=== PATIENT | female | born 1985 | race Caucasian/White ===

== ENCOUNTER 2016-05-11 22:55 | Observation (INO) | payer MEDICAID ==
[~2016-05-11] VITALS: Ht 175.3 cm; Wt 105.0 kg
--- NOTE | ~2016-05-11 | ER ---
PATIENT'S NAME: SENTHIL WEST [facility] AGE: 30 Y [address] ROOM: [place] [id number] LOCATION: [facility] ADMIT DATE: 05/11/2016 ER/Outpatient Report DISCHARGE DATE: FAMILY PHYSICIAN: Physician, Unknown ATTENDING PHYSICIAN: Andi Tuttle Time of Arrival: 2253 hours. Time of Evaluation: 2253 hours. CHIEF COMPLAINT: Seizures. HISTORY OF PRESENT ILLNESS: The patient arrived per EMS. She is currently staying at the [facility]; is here from [place]. Has a history of seizure disorder. Upon EMS arrival, she did have a seizure. They started an IV, gave her Ativan 2 mg and Zofran. She did seize again and they gave her Valium 5 mg IV. Upon arrival to the ER, she states that she did fall tonight prior to all the seizures starting, hit her head, and has some generalized neck pain. She is alert and able to answer questions appropriately. ALLERGIES: SHE HAS MULTIPLE ALLERGIES LISTED ON THE CHART. MEDICATIONS: See her med list. PAST MEDICAL HISTORY: Seizure, anemia, and ovarian cyst. PAST SURGERIES: Include brain surgery, throat surgery, left leg surgery, cholecystectomy, and lymph nodes. SOCIAL HISTORY: She does smoke 1/2 pack per day and has for the last 10 years. Is currently staying at the [facility]. Denies use of drugs and alcohol. States she is taking Keppra on a regular basis. REVIEW OF SYSTEMS: She denies being ill prior to all this starting. Has not had a cough, cold, congestion, or runny nose. Has not had any chest pain. Has not been sick to her stomach. Has not been vomiting or having diarrhea. PHYSICAL EXAMINATION: VITAL SIGNS: She weighed 107.2 kg. Blood pressure is 113/62, pulse of 77, PATIENT'S NAME: SENTHIL WEST [facility] AGE: 30 Y [address] ROOM: [place] [address] LOCATION: [facility] ADMIT DATE: 05/11/2016 ER/Outpatient Report DISCHARGE DATE: FAMILY PHYSICIAN: Physician, Unknown ATTENDING PHYSICIAN: Andi Tuttle respirations 18, temperature of 98.2, and O2 saturations are 96% on room air. GENERAL: She is awake and alert and oriented x4. HEENT: Pupils are equal and reactive to light. Extraocular movement is intact. Follows directions appropriately. LUNGS: Lung sounds are clear throughout. HEART: Regular rate and rhythm. ABDOMEN: Soft, nondistended. Bowel sounds are present. EXTREMITIES: She has good sensation to all of her extremities, able to move her legs without increased pain or discomfort. EMERGENCY DEPARTMENT COURSE: The patient was taken to CAT scan for CT of the head and neck. While in CAT scan, she did have a seizure. She was given Valium 5 mg IV. Upon return to the ER, lab work was drawn. Her CBC is within normal limits. Chem panel is within normal limits. Prolactin was 40. CT of the C-spine shows no cervical abnormalities. She does have a right thyroid nodule. CT of the head was normal. The patient did have another seizure here in the ER and was given Ativan 4 mg IV. She remains awake and talking after the seizure, answers questions, denies having any pain. The patient was reviewed with Dr. Tuttle. Keppra 500 mg IV was ordered and initiated. Report was given to Dr. Tuttle who will resume the patient's care. ARDEN PATTERSON APRN FOR MD ADILENE RIDDLE/darryn /[id number] d: 05/12/16 0446 t: 05/15/16 1825, OUTPATIENT REPORT
--- NOTE | ~2016-05-11 | ER ---
PATIENT'S NAME: SENTHIL WE[facility] AGE: 30 Y [address] ROOM: [address] [place], [place] [address] LOCATION: GPCU ADMIT DATE: 05/12/2016 ER/Outpatient Report DISCHARGE DATE: FAMILY PHYSICIAN: PHYSICIAN, UNKNOWN ATTENDING PHYSICIAN: Ravinder Barry HISTORY OF PRESENT ILLNESS: This patient is a 30-year-old female, brought to the emergency room by paramedics by ambulance with acute seizure activity. She has a known seizure disorder. Saw Cadence France, who did the workup. She got a total of 4 mg of Ativan and 5 mg of Valium en route, still was having some seizure activity here. We subsequently gave her additional 4 mg of Ativan and 5 mg of Valium while she was here in the emergency department along with 500 mg of Keppra IV. She did have a CT scan of the head and cervical spine, which were both normal except for a thyroid nodule. Cadence France did transfer the patient's care over to me at shift change. She asked me to follow up with her laboratory studies, final diagnosis, and treatment plan. See Cadence France's dictation in regard to the history of the present illness, physical exam, past medical history. LABORATORY DATA AND X-RAYS: The patient's white count was 6600, 54 segs, 35 lymphs, 8 monos, 2 eos, 1 baso. Hemoglobin is 11.7, hematocrit 36.2, platelet count is 215,000. CMS was normal except for an elevated glucose 101, low calcium 7.9. Prolactin level was elevated at 40. CT scan of the cervical spine showed no fracture or subluxation. She had a 1.3 cm right thyroid nodule. IMAGING: CT scan of the head showed no intracranial bleed, midline shift, mass effect, or skull fracture. CT scans were read by Radiology, see dictated transcribed report. Again, the patient was fairly postictal and was sedated with Ativan and Valium and also given Keppra 500 mg IV. IMPRESSION: Acute seizure activity with known seizure disorder. PLAN: I did discuss the patient with Dr. Barry, hospitalist, who will admit the patient for observation. Keppra and blood study level was drawn and sent out. We will keep her on Keppra 500 mg b.i.d. Further treatment and evaluation as needed. PATIENT'S NAME: SENTHIL WEST [facility] AGE: 30 Y [address] ROOM: [place] [address] [facility] ADMIT DATE: 05/12/2016 ER/Outpatient Report DISCHARGE DATE: FAMILY PHYSICIAN: PHYSICIAN, UNKNOWN ATTENDING PHYSICIAN: Ravinder Barry MD SDS/modl /[id number] d: 05/12/16710 t: 05/14/16 1814, OUTPATIENT REPORT
--- NOTE | ~2016-05-11 | NDGEN ---
PATIENT'S NAME: SENTHIL WEST [facility] AGE: 30 Y [address] ROOM: [facility] [place], [place] [address] [facility] ADMIT DATE: 05/12/2016 Neurodiagnostics DISCHARGE DATE: FAMILY PHYSICIAN: PHYSICIAN, UNKNOWN ATTENDING PHYSICIAN: Ravinder Barry PROCEDURE: ELECTROENCEPHALOGRAM DATE OF PROCEDURE: 05/12/2016 CLINICAL DIAGNOSIS: TIME: 10:07 a.m. INDICATION: Here is for this 30-year-old female patient who has a recent history of possible generalized seizures versus pseudoseizures. This is a standard 20-lead EEG which was done with the patient awake though she was drowsy and was mumbling in a sleepy state. During the 20-minute study, the patient did fall asleep. There was a photic stimulation, but hyperventilation was not done due to the patient's drowsiness. DESCRIPTION: The general background rhythm showed a mixture of alpha and beta rhythm and was symmetric in all the leads. The alpha rhythm appeared to have a normal sinusoidal pattern. occasionally, the background rhythm was also intermixed with beta range rhythm of at least 15 to 18 hertz. This beta rhythm would most likely be consistent with the patient being in a drowsy state due to recent benzodiazepine use. No time was there any epileptiform features seen and no seizures were recorded. IMPRESSION: Essentially a normal electroencephalogram with no epileptiform features. The lower amplitude beta rhythm is likely associated with the patient receiving benzodiazepines. MD ANI POP/darryn /[id number] dtt: 06/02/16 1315 , ISAIAH KEN dtd: 05/12/16 1824
--- NOTE | ~2016-05-11 | ECHO ---
Transthoracic Echocardiography Report (TTE) Demographics Patient Name SENTHIL WEST Date of Study 05/12/2016 Patient Number [id number] Visit Number [id number] Date of 1985 Room Number G6334 Accession Number [id number] Gender Female Age 30 year(s) Referring Asha Blood MD Chip Bin Operator Anup Caputo Physician Physician Dereje Robison Clinic Administrator Physician Clara Supervising Ordering Physician Asha Blood MD, MD/P Nurse Stress Marble Worker Conclusions Contractility Score Summary Normal Left Ventricular contractility was noted. Summary The estimated left ventricular ejection fraction is 55-60%. Diastolic assessment suggests normal relaxation. The left atrium is mildly dilated by LA volume index measurement. The right atrium is mildly dilated. Suboptimal subcostal window due to patient position. Unable to evaluate the interatrial septum. Procedure Type of Study TTE procedure:2D Echocardiogram, M-Mode, Doppler , Color Doppler. Procedure Date Date: 05/12/2016 Start: 07:49 AM Study Location: Inpatient Portable Technical Quality: Good visualization Indications:Bradycardia. Appropriate Use Criteria: 9 Patient Status: Routine HR: 53 bpm BP: 126/84 mmHg M-Mode/2D Measurements LV Diastolic Dimension: 4.93 cm LV Systolic Dimension: 3.53 cm LV Septum Diastolic: 0.92 cm LV PW Diastolic: 0.95 cm AO Root Dimension: 2.3 cm Cardiac Output: 5.55 l/min LA Dimension: 3.9 cm EF Estimated: 60 % LVOT: 2.3 cm LVOT VTI: 25.2 cm RV Base: 2.88 cm LV Stroke volume: 104.65 ml RV Length: 6.48 cm TAPSE: 2.52 cm TDI-S': 12.1 cm/s Doppler Measurements AV Peak Velocity: 1.14 m/s MV Peak E-Wave: 0.78 m/s AV Peak Gradient: 5.2 mmHg MV Peak A-Wave: 0.7 m/s AV Mean Gradient: 4 mmHg MV E/A Ratio: 1.11 LVOT Peak Velocity: 0.99 m/s MV P1/2t: 53 msec TR Gradient:24.4 mmHg PV Peak Velocity: 0.72 m/s Estimated RAP:8 mmHg PV Peak Gradient: 2.09 mmHg Estimated RVSP: 32 mmHg Estimated PASP: 32.4 mmHg E' Septal Velocity: 0.08 m/s A' Septal Velocity: 0.12 m/s E' Lateral Velocity: 0.12 m/s A' Lateral Velocity: 0.08 m/s Findings Left Ventricle The left ventricle is normal in size . Diastolic assessment suggests normal relaxation. Right Ventricle Normal right ventricle structure and function. Left Atrium The left atrium is mildly dilated by LA volume index measurement. Right Atrium The right atrium is mildly dilated. Mitral Valve Trivial mitral regurgitation by color Doppler. Aortic Valve Normal aortic valve structure and function. Tricuspid Valve Trivial tricuspid regurgitation by color Doppler. Pulmonic Valve Trivial pulmonic valve regurgitation by color Doppler. Pericardial Effusion No evidence of pericardial effusion. Miscellaneous Visualized portions of the aortic root and ascending aorta appear normal in size. Suboptimal subcostal window due to patient position. Unable to evaluate the interatrial septum. Pleural Effusion No evidence of pleural effusion. Contractility Score LV regional wall motion:(0-Non visualized 1-Normal 2-Hypokinesis 3-Akinesis 4-Dyskinesis 5-Aneurysm) Signature dtt: CLARA ROBISON dtd: 05/12/16 0749 Physician Self Edit
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
--- NOTE | ~2016-05-11 | HP ---
PATIENT'S NAME: SENTHIL WEST [facility] AGE: 30 Y [address] ROOM: [place] [address] LOCATION: GPCU ADMIT DATE: 05/12/2016 History & Physical DISCHARGE DATE: FAMILY PHYSICIAN: PHYSICIAN, UNKNOWN ATTENDING PHYSICIAN: Ravinder Barry DATE OF SERVICE: CHIEF COMPLAINT: Intractable seizures. HISTORY OF PRESENTING ILLNESS: This 30-year-old, white female was brought to the emergency department last evening with recurrent seizures. She is known to have seizure disorder and does take anti-seizure medication. Per her own report and to the emergency room physician, she had been compliant with her medication. She had several witnessed seizures in the emergency room and received IV Keppra. Subsequently, she continued to have seizures and received some additional Valium, Ativan, and IV valproate. After her arrival to the floor, she did have some additional episodes of bradycardia, although her blood pressures have remained stable. She also had another seizure after her arrival to the floor. Seizures have been characterized by tonic-clonic activity and diminished responsiveness. On my evaluation, she was awake and complaining of mild headache. She was lethargic. She indicated that she had been compliant with her medications. She has not been sleeping well as of late. She was unable to recount any other additional historical information. ALLERGIES: CECLOR, SULFAZINE, DOXYCYCLINE, LAMICTAL, MORPHINE, AND ZITHROMAX. ILLNESSES: 1. Seizure disorder. 2. Anemia. 3. Obesity. CURRENT MEDICATIONS: Unknown and unavailable, but apparently including Keppra. FAMILY HISTORY: Unobtainable secondary to the patient's depressed mental status. SOCIAL HISTORY: PATIENT'S NAME: SENTHIL WEST [facility] AGE: 30 Y [address] ROOM: [address] [address] LOCATION: GPCU ADMIT DATE: 05/12/2016 History & Physical DISCHARGE DATE: FAMILY PHYSICIAN: PHYSICIAN, UNKNOWN ATTENDING PHYSICIAN: Ravinder Barry Unobtainable secondary to the patient's diminished mental status. REVIEW OF SYSTEMS: As per HPI. The remainder are reviewed in very limited fashion secondary to the patient's nearly obtunded mental status, but otherwise negative. OBJECTIVE: VITAL SIGNS: Temperature 98.2, pulse 72, respirations 18, blood pressure 113/62, O2 saturation 96% on room air, weight is 107.2 kilos. GENERAL: She is little disheveled, awake, but lethargic and able to answer questions only in nodding fashion. She is not oriented. SKIN: Supple, pink, warm, dry. There were no obvious rashes. She does have some tattoos evident and some scattered piercings. HEENT: Otherwise, normocephalic. Sclerae are nonicteric. There is some horizontal nystagmus noted. Pupils are equal, round, briskly responsive to light. Extraocular movements appear intact. Nasal turbinates are normal in appearance. Oropharynx is clear. Mucous membranes are pink and moist. NECK: Supple, plethoric, and obese. No masses or adenopathy. No thyromegaly. No JVD. CHEST: Chest wall is symmetrical. HEART: Regular without murmurs. LUNGS: Diminished at the bases. No crackles. No wheezes. ABDOMEN: Soft, nontender. Bowel sounds are present. No masses or hepatosplenomegaly. and RECTAL: Not done. EXTREMITIES: Display no significant clubbing, cyanosis, or edema. NEUROLOGICAL: Nystagmus as described above. Cranial nerves 2 through 12 appear to be grossly intact. Sensation appears normal. Strength is diminished, 3 to 5/5 bilaterally in upper and lower extremities. DTRs 0 to 1+. Gait is not observed. LABORATORY AND X-RAY DATA: CT scan of the head is negative for any acute intracranial process. CT scan of the C-spine is unremarkable. A 1.3 cm right thyroid nodule is incidentally noted. ASSESSMENT AND PLAN: 1. Seizures, intractable. Plan to continue with IV Keppra and valproate. We will utilize p.r.n. benzodiazepine therapy for breakthrough seizures. We will plan to get teleneurology consultation later this morning and provide continued supportive cares. 2. Bradycardia, asymptomatic. Symptoms seem to be intermittent and probably vagally mediated related to the seizures. We will monitor on telemetry and provide supportive cares as above. We will plan to get echocardiography later this morning. PATIENT'S NAME: SENTHIL WEST [facility] AGE: 30 Y [address] ROOM: [id number] [place] [address] LOCATION: GPCU ADMIT DATE: 05/12/2016 History & Physical DISCHARGE DATE: FAMILY PHYSICIAN: PHYSICIAN, UNKNOWN ATTENDING PHYSICIAN: Ravinder Barry 3. Thyroid nodule. It is unknown if this is already known to the patient. We will get TSH and free T4 and follow up now when the results are known. 4. Morbid obesity due to excess calories. In the long-term, we will work on some long-term strategies for weight loss including calorie reduction, increased exercise, etc. 5. Deep venous thrombosis prophylaxis. We will hold off on heparin and Lovenox in light of the active seizure problem. Utilize pneumatic compression devices while she is in bed. MD BONNIE NUÑEZ/modl /[id number] D: [id number] T: [id number] HISTORY & PHYSICAL
[2016-05-11 23:38] LABS: BASOPHIL % 0.6 %; EOSINOPHIL # 0.2 K/uL (0.0-0.5); EOSINOPHIL % 2.4 %; HEMATOCRIT 36.2 % (33.0-46.0); HEMOGLOBIN 11.7 g/dL (11.0-15.0); IMMATURE GRANULOCYTE % 0.2 %; LYMPHOCYTE # 2.3 K/uL (0.8-4.0); MCH 30.2 pg (27.0-34.0); MCHC 32.3 gm/dL (32.0-36.5); MCV 93.3 fl (83.0-98.0); MONOCYTE # 0.5 K/uL (0.0-1.0); MONOCYTE % 7.9 %; NEUTROPHIL # (ANC) 3.6 K/uL (1.8-7.8); NEUTROPHIL % 53.9 %; NRBC % 0 /100WBC (0-0.00); PLATELET COUNT 215 K/uL (150-450); RBC 3.88 M/uL (3.50-5.50); RDW-CV 13.5 % (11.9-14.6); WBC 6.6 K/uL (4.0-11.0)
[2016-05-11 23:59] LABS: ALK PHOS 96 IU/L (33-138); ALT 25 IU/L (12-78); ANION GAP 11.8 (10.0-19.0); AST 18 IU/L (10-40); BLOOD UREA NITROGEN 14 mg/dL (6-24); CALCIUM 7.9 mg/dL (8.5-10.5); CHLORIDE 107 mMol/L (96-110); CO2 27 mMol/L (22-32); ESTIMATED GFR (MDRD EQUATION) > 60; POTASSIUM 3.8 mMol/L (3.7-5.1); SODIUM 142 mMol/L (135-145); TOTAL BILIRUBIN 0.1 mg/dL (0.0-1.5); TOTAL PROTEIN 6.4 g/dL (6.0-8.4)
[2016-05-12] MEDS ORDERED: BACTRIM DS TAB1 EACH PO (09:52)
[2016-05-12] MEDS ORDERED: DAILY VITAMIN1 EAC2 PO (09:53)
[2016-05-12] MEDS ORDERED: KEPPRA500 MG PO (09:53)
[2016-05-12] MEDS ORDERED: HYDROXYZINE PAM25 MG PO (09:54)
[2016-05-12] MEDS ORDERED: NEURONTIN300 MG PO (09:55)
[2016-05-12] MEDS ORDERED: COLESTID1 GM PO (09:55)
[2016-05-12] MEDS ORDERED: PROZAC20 MG PO (09:56)
[2016-05-12] MEDS ORDERED: PRILOSEC20 MG PO (09:56)
[2016-05-12] MEDS ORDERED: DESYREL150 MG PO (09:57)
[2016-05-12] MEDS ORDERED: MINIPRESS2 MG PO (09:57)
[2016-05-12 13:05] LABS: BILIRUBIN URINE NEGATIVE (NEGATIVE); BLOOD URINE NEGATIVE /UL (NEGATIVE); COLOR URINE STRAW (YELLOW); GLUCOSE URINE NEGATIVE (NEGATIVE); KETONE URINE NEGATIVE (NEGATIVE); LEUKOCYTES URINE NEGATIVE /UL (NEGATIVE); NITRITE URINE NEGATIVE (NEGATIVE); PROTEIN URINE NEGATIVE (NEGATIVE); TURBIDITY URINE CLEAR (CLEAR); UROBILINOGEN URINE NORMAL (NORMAL)
--- NOTE | 2016-05-12 14:22 | NUR ---
Introduced self and CM role to Ragini Medina ([facility] Advocate) and Leila ([facility]). SW materials intern Aleyda also present. I let them know that I helped out with eventual dismissal plans. Carol tells me that she lives at the [facility] and has asked to be a confidential patient. I let her know I wuold relay this with nursing if they didn't already know. Ragini states that she, or any other [facility] Advocate, will be able to come and pick her up when she is dismissed. The number to the [facility] is [phone]. Both Ragini and Leila asked if they could have a release of information signed so they would be able to get updates on Carol in order to help her. I let them know that was up to Carol. Carol states that this is fine. I did get the release of healthcare information form and had both Leila and Ragini fill one out and have Carol sign them. I placed them in Carol's chart for future reference. Carol denied any questions, needs or concerns. I let them know I would continue to follow and assist. I also gave both of them my business card for future contact or questions they might have. Will continue to follow and assist. Updated EDUARDO Pastor that she wanted to be a confidential patient, she was already aware of this and has updated admissions. Updated Dr. Jasso to it as well. Will continue to follow and assist.
--- NOTE | 2016-05-12 18:06 | NUR ---
patient is 30 yo female admitted from ER at 0557 this am. patient has been having seizures throughout the day. was asked to complete the admission data base I. introduced myself to patient, told her that I needed to ask her some questions to complete our paperwork. Did say she was her from [place] to "try to be safe." refused to give contact information. stated "they already have that." asked her about her surgery history. patient stated "oh my God, they already have that" and rolled over away from me. refused to answer any further questions at this time. IV is infusing in left antecubital space without erythema or edema noted at site. Education is not given at this time, due to patient condition and refusal to answer and listen at this time. Report is given to EDUARDO montes
--- NOTE | 2016-05-12 21:31 | NUR ---
Significant event: Patient Alert and oriented at times. Able to state that she is in the hospital, name and . VS stable on RA. Patient had total of 3 active seizures this shift, all documented. Keppra dose increased. Patient is able to answer questions appropriately when fully alert. Uses call light appropriately. Have been using bedpan to prevent any falls with seizure activity. Patient on regular diet. IV to L) inner FA SL. Patient has a hx of cutting, has cuts to bilateral upper arms. Pocket knife in patient's belongings sent with security after patient approval. Continue to monitor patient for active seizure activity. EEG done today. Patient cooperative with cares. FOllow up: Database 1 to be completed.
--- NOTE | 2016-05-13 03:41 | NUR ---
Significant Event: VSS, PT AFEBRILE. CONTINUES TO BE DROWSY FOR MUCH OF THE SHIFT. PT DID TAKE HERSELF TO RESTROOM ONCE THIS SHIFT-BED ALARMS NOW ON AT ALL TIMES. REMINDED PT TO CALL AND THAT SHE NEEDS TO STAY IN BED. NO WITNESSED SEIZURES BY THIS NURSE, LOGGING RAFTER LABORER ON FLOOR DID WITNESS ONE AT BEGINNING OF SHIFT. 1 LARGE BM. ATE A SMALL LUNCH. CONTINUES ON RA WITH SATS IN LOW 90'S WHILE SLEEPING. Follow up:
[2016-05-13 04:53] LABS: ANION GAP 12.3 (10.0-19.0); BLOOD UREA NITROGEN 13 mg/dL (6-24); CALCIUM 8.4 mg/dL (8.5-10.5); CHLORIDE 109 mMol/L (96-110); CO2 26 mMol/L (22-32); CREATININE 0.8 mg/dL (0.5-1.1); ESTIMATED GFR (MDRD EQUATION) > 60; SODIUM 143 mMol/L (135-145)
[2016-05-13 04:54] LABS: POTASSIUM 4.3 mMol/L (3.7-5.1)
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
--- NOTE | 2016-05-13 18:36 | NUR ---
D:Patient this morning, watching TV. Had no complaints at initial assessment-[id number]. The admission nurse here, went in to see if patient would cooperate with doing admission database. At 0857, while admission nurse in room, started having seizure, patient lying on side, did get rigid, last approx 3 minutes, had an emesis. Told the admission nurse she was going to have another one, and did have a second one at 0902, lasted 1-2 minutes. and at 0907, had 3rd sizure. Dr. Jasso was called and up to see patient. With 3rd seizure did give 2mg Ativan. Patient didn't have any further seizures. She slept, when you went in, patient would open eyes and look at you, but would answer any questions. Didn't get 0900 medications. At 1100, was in room, patient wouldn't answer questions, just sleeping. Dr. Jasso back up to see patient. At 1130, patient put rn clinical documentation specialist light and told TA she was going to have a seizure. Patient did have a 1 minute long seizure. Then had second seizure at 1140, Ativan [address] Jasso talking with doctor from [place], and decided it would be better to send her to [place] for Video EEG. He, also, gave order to give IV Keppra X1, hadn't taken PO. At 1215, patient got up to bathroom and up to chair, No seizure activity. Talked with patient about her going to [place] for further testing. While were making ambulance arrangements and getting acceptance, patient was talking with her bus person dishwasher at [facility]. Patient's behavioor began escalating with talk of patient going to [place]. Tried to reassure patient that no one would be aware of her being [place], and that they would send her back to [place] as soon as they could. Patient called several people and had us talk to them about why she was being transferred. She was crying and angry, cursing at staff because we didn't understand. Patient didn't have any seizure activity during this time. Dr. Jasso was backt into see patient, and talked with her and her bus person dishwasher on the phone. At 1250, patient at this time is admant that she is not going to [place] or staying here. She removed her own IV. Dr. Jasso talked talked with patient about the dangers of leaving AMA, patient verbelizes understanding, we reinforced imformation, patient still insistent about leaving. [facility] anxious about her leaving, they were told that they could bring her back to hospital if she was willing, or was having siezures. At 1310, signed AMA papers. Has personal belongings and her personal medications. At 1315, patient left the building ambulatory, released to [facility].
== END 2016-05-13 13:15 | disposition left against medical advice (07) ==
LOC: GMED 22:55 → GPCU 05-12 04:47
PROVIDERS: Emergency Medicine; Internal Medicine; ADMIT Family Medicine
DX: G40.919 Epilepsy, unspecified, intractable, without status epilepticus (principal); D64.9 Anemia, unspecified; E04.1 Nontoxic single thyroid nodule; E66.01 Morbid (severe) obesity due to excess calories; Z68.34 Body mass index [BMI] 34.0-34.9, adult; F17.210 Nicotine dependence, cigarettes, uncomplicated; Z88.1 Allergy status to other antibiotic agents; Z88.5 Allergy status to narcotic agent; Z88.8 Allergy status to other drugs, medicaments and biological substances
CPT/HCPCS: G0378; J1644; J1953; J2060; J2560; J3360; J7030

== ENCOUNTER → 2016-05-11 | Outpatient (CLI) | payer MEDICAID ==
[~2016-05-11] MED LIST: BACTRIM DS TAB1 EACH PO; COLESTID1 GM PO; DAILY VITAMIN1 EAC2 PO; DESYREL150 MG PO; HYDROXYZINE PAM25 MG PO; KEPPRA500 MG PO; MINIPRESS2 MG PO; NEURONTIN300 MG PO; PRILOSEC20 MG PO; PROZAC20 MG PO
== END | disposition disaster alternative care site (69) ==
LOC: GAMB 22:23
DX: R56.9 Unspecified convulsions (principal); F32.9 Major depressive disorder, single episode, unspecified; D64.9 Anemia, unspecified; Z79.899 Other long term (current) drug therapy
CPT/HCPCS: A0425; A0427; J2060; J2405; J3360

== ENCOUNTER 2016-05-13 15:33 | Emergency (ER) | payer MEDICAID ==
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
== END 2016-05-13 17:52 | disposition disaster alternative care site (69) ==
LOC: GMED 15:33
DX: R56.9 Unspecified convulsions (principal)